=== PATIENT | male | born 1975 | race Caucasian/White ===

== ENCOUNTER 2019-11-15 13:23 | Outpatient (REF) | payer MEDICAID, SELFPAY ==
[2019-11-15 21:28] LABS: BUN 10 mg/dL (7-18); CREATININE 1.09 mg/dL (0.70-1.30); Calculated LDL 93 mg/dL (<100); Cholesterol 183 mg/dL (<200); HDL Cholesterol 56 mg/dL (40-60); TSH (W/Ref FT4) 0.85 uIU/mL (0.36-3.74); Triglyceride 174 mg/dL (<150)
== END 2019-11-15 13:43 ==
LOC: NCHCN 13:23
PROVIDERS: PCP Family Medicine; Visit Provider Nurse Practitioner Family
DX: I10 Essential (primary) hypertension (principal); Z13.220 Encounter for screening for lipoid disorders
CPT/HCPCS: 80061; 84520; 82565; 84443